=== PATIENT | male | born 1940 | race Caucasian/White ===

== ENCOUNTER 2016-09-08 12:02 | Inpatient (IN) | payer MEDICARE, BC ==
[~2016-09-08 12:02] MED LIST: ADULT LOW DOSE81 MG PO; ADVAIR 2501 DISK W/D; AIRET0.83 MG/ML IH; ALBUTEROL INH 0.3 ML AERO NEB; ALBUTEROL SULF8.5 GM IH; AMILORIDE HCL5 MG; AMILORIDE HCL5 MG PO; AMLODIPINE BESY10 MG PO; ASPIR 8181 MG; ASPIR-LOW81 M1 PO; AUGMENTIN875 MG PO; BABY ASPIRIN81 MG PO; BENAZEPRIL PO; BENICAR40 MG; CADUET 10 MG/201 TAB; CARDIZEM CD360 MG; CARTIA XT180 MG PO; CINNAMON PO; CINNAMON500 MG PO; CPAP; DEMADEX10 M1 PO; DUONEB 2.5-0.5 M3 ML IH; DUONEB 2.5-0.5MG3 M1 AERO NEB; FISH OIL 1,0001 CA1 PO; FLONASE16 GM NS; FLUCONAZOLE100 MG PO; GLIPIZIDE XL5 MG PO; GLIPIZIDE5 MG PO; GLUCOPHAGE XR500 M1 PO; GLUCOTROL XL10 M1 PO; GLUCOTROL XL2.5 MG PO; GLUCOTROL5 MG PO; LEVAQUIN750 MG PO; LEVOTHYROXINE150 MC3 PO; LEVOTHYROXINE150 MCG PO; LOPRESSOR25 MG/TA1 GT; LOPRESSOR25 MG/TA1 PO; LOPRESSOR50 MG PO; LOTENSIN40 MG PO; METFORMIN HCL500; METFORMIN HCL500 MG PO; MUCINEX1200 MG/BO PO; MULTIVITAMIN1 TAB PO; NASONEX17 GM NS; NEXIUM20 MG PO; NIASPAN1000 MG PO; NIASPAN500 MG PO; NIFEREX-150150 MG PO; NORCO 5/3251 TA1 PO; NORCO 5/3251 TAB PO; NORVASC5 M2 PO; OMEGA 31 CAP PO; OMEGA-31000 MG PO; OXYGEN; OXYGEN INH; OXYGEN NS; POTASSIUM CHLO20 MEQ PO; PREDNISONE10 MG PO; PRILOSEC OTC20 MG PO; PRINIVIL20 M1 PO; PROTONIX40 MG PO; ROBITUSSIN DM118 ML PO; SIMCOR PO; SIMVASTATIN40 MG PO; SPIRIVA18 MCG; SPIRIVA18 MCG IH; SYMBICORT 160-4.6 GM IH; SYMBICORT 16010.2 GM IH; SYNTHROID100 MCG; TAGAMET400 MG; TERAZOSIN HCL2 M PO; TERAZOSIN HCL5 MG PO; TERAZOSIN2 MG PO; TIAZAC180 MG PO; TORSEMIDE20 MG; TORSEMIDE20 MG PO; VITAMIN C PO; ZITHROMAX250 MG PO; ZOCOR10 M1 PO; amiloride PO
[2016-09-08] MEDS ORDERED: ANORO ELLIPTA1 EAC1 INH (12:21)
[2016-09-08] MEDS ORDERED: PAMELOR25 M1 PO (12:21)
[2016-09-08] MEDS ORDERED: POTASSIUM CHLO20 ME3 PO (12:31)
[2016-09-08] MEDS ORDERED: FISH OIL 11000 MG/CA PO (12:32)
[2016-09-08] MEDS ORDERED: VITAMIN C500 M3 PO (12:32)
[2016-09-08] MEDS ORDERED: MULTIVITAMINS1 EAC7 PO (12:32)
[2016-09-08] MEDS ORDERED: ALBUTEROL2.5 MG/3 M INH (12:33)
[2016-09-08] MEDS ORDERED: VITAMIN D31000 UNI4 PO (12:33)
[2016-09-08] MEDS ORDERED: FERROUS SULFAT325 MG PO (12:33)
[2016-09-08] MEDS ORDERED: CINNAMON500 M1 PO (12:43)
[2016-09-08] MEDS ORDERED: DEMADEX20 M1 PO (12:46)
[2016-09-08 12:48] LABS: BASO % 0.2 % (0-2); EOS % 1.3 % (0-7); EOSINOPHIL ABSOLUTE COUNT 0.1 tho/cmm (0.0-0.7); HCT-HEMATOCRIT 37.1 % (36.0-53.5); HGB-HEMOGLOBIN 11.3 gm/dl (13.5-17.0); LYMPH % 15.7 % (20-45); LYMPH ABSOLUTE COUNT 0.7 tho/cmm (0.8-4.5); MCHC MEAN CORPUSCULAR HGB CONC 30.5 % (32.0-36.0); MCV (MEAN CELL VOLUME) 88.5 fl (82.0-96.0); MEAN PLATELET VOLUME 10.2 cmc (9.4-12.4); MONO % 14.1 % (0-12); MONOCYTE ABSOLUTE COUNT 0.6 tho/cmm (0.0-1.2); NEUTROPHIL ABSOLUTE COUNT 3.1 tho/cmm (1.6-8.0); NEUTROPHIL-AUTOMATED 3.1 tho/cmm (1.6-8.0); NEUTROPHILS % 68.7 % (40-80); PLATELET COUNT 92 tho/cmm (150-450); RED BLOOD COUNT 4.19 mil/cmm (4.40-5.70); RED CELL DISTRIBUTION WIDTH 15.3 % (12.4-16.4); WHITE BLOOD COUNT 4.5 tho/cmm (4.0-10.0)
[2016-09-08 13:01] LABS: ALB/GLOB RATIO 1.2 (0.8-2.0); ALBUMIN 3.6 g/dl (3.5-5.0); ALKALINE PHOSPHATASE 81 U/L (33-138); ALT/SGPT 19 U/L (12-78); ANION GAP 11 mmol/L (0-20); AST/SGOT 23 U/L (10-40); BILIRUBIN,TOTAL 0.4 mg/dl (0.0-1.5); BLOOD UREA NITROGEN 48 mg/dl (6-24); CALCIUM 9.1 mg/dl (8.5-10.5); CARBON DIOXIDE-VENOUS 31 mmol/L (22-32); CHLORIDE 103 mmol/l (96-110); CREATININE 1.57 mg/dl (0.60-1.30); GLUCOSE 194 mg/dL (70-110); POTASSIUM 5.4 mmol/L (3.7-5.1); SODIUM 140 mmol/L (135-145); eGFR VALUE FOR BLACK 50 mL/Min
[2016-09-08 13:11] LABS: ABG CO2 ARTERIAL 34 mmol/L (21-27); ARTERIAL BLD GAS O2 SATURATION 94 % (95-98); ARTERIAL PO2 80 mmHg (70-100); BICARBONATE 32 mmol/L (21-28); BLOOD GAS BASE EXCESS 3 mM/L (-/+3); PH 7.25 Units (7.35-7.45)
[2016-09-08 13:14] LABS: ARTERIAL BLOOD GAS PCO2 74 mmHg (32-45)
[2016-09-08 16:36] LABS: ABG CO2 ARTERIAL 34 mmol/L (21-27); ARTERIAL BLD GAS O2 SATURATION 91 % (95-98); ARTERIAL BLOOD GAS PCO2 63 mmHg (32-45); ARTERIAL PO2 68 mmHg (70-100); BICARBONATE 32 mmol/L (21-28); BLOOD GAS BASE EXCESS 5 mM/L (-/+3); PH 7.33 Units (7.35-7.45)
[2016-09-08 16:37] LABS: URINE APPEARANCE CLEAR; URINE BILIRUBIN NEGATIVE (NEG); URINE BLOOD NEGATIVE (NEG); URINE COLOR YELLOW; URINE GLUCOSE (UA) NEGATIVE (NEG); URINE KETONE NEGATIVE (NEG); URINE LEUKOCYTE ESTERASE NEGATIVE (NEG); URINE NITRITE NEGATIVE (NEG); URINE PROTEIN SMALL (NEG); URINE SPECIFIC GRAVITY 1.015 (1.003-1.030)
[2016-09-08 16:48] LABS: URINE EPITHELIAL CELLS 0-1 /[HPF] (0-10); URINE RBC 0 /[HPF] (0-5); URINE WBC 0 /[HPF] (0-5)
[2016-09-08 18:07] LABS: ANION GAP 7 mmol/L (0-20); BLOOD UREA NITROGEN 47 mg/dl (6-24); CALCIUM 9.2 mg/dl (8.5-10.5); CARBON DIOXIDE-VENOUS 35 mmol/L (22-32); CHLORIDE 103 mmol/l (96-110); CREATININE 1.44 mg/dl (0.60-1.30); POTASSIUM 5.1 mmol/L (3.7-5.1); SODIUM 140 mmol/L (135-145); eGFR VALUE FOR BLACK 55 mL/Min
[2016-09-08 18:08] LABS: GLUCOSE 84 mg/dL (70-110)
[2016-09-08 18:43] LABS: PROCALCITONIN <0.05 ng/ml (0.05-0.09)
[2016-09-09 05:03] LABS: ABG CO2 ARTERIAL 35 mmol/L (21-27); ARTERIAL BLD GAS O2 SATURATION 94 % (95-98); ARTERIAL BLOOD GAS PCO2 58 mmHg (32-45); BICARBONATE 33 mmol/L (21-28); BLOOD GAS BASE EXCESS 7 mM/L (-/+3); PH 7.37 Units (7.35-7.45)
[2016-09-09 05:05] LABS: ARTERIAL PO2 83 mmHg (70-100)
[2016-09-09 05:23] LABS: BASO % 0.2 % (0-2); EOS % 1.5 % (0-7); EOSINOPHIL ABSOLUTE COUNT 0.1 tho/cmm (0.0-0.7); HCT-HEMATOCRIT 34.6 % (36.0-53.5); HGB-HEMOGLOBIN 10.5 gm/dl (13.5-17.0); LYMPH % 19.7 % (20-45); LYMPH ABSOLUTE COUNT 0.9 tho/cmm (0.8-4.5); MCH (MEAN CORPUSCULAR HGB) 26.5 pg (28.0-32.0); MCHC MEAN CORPUSCULAR HGB CONC 30.3 % (32.0-36.0); MCV (MEAN CELL VOLUME) 87.4 fl (82.0-96.0); MONO % 18.1 % (0-12); MONOCYTE ABSOLUTE COUNT 0.8 tho/cmm (0.0-1.2); NEUTROPHIL ABSOLUTE COUNT 2.8 tho/cmm (1.6-8.0); NEUTROPHIL-AUTOMATED 2.8 tho/cmm (1.6-8.0); NEUTROPHILS % 60.5 % (40-80); PLATELET COUNT 85 tho/cmm (150-450); RED BLOOD COUNT 3.96 mil/cmm (4.40-5.70); RED CELL DISTRIBUTION WIDTH 15.4 % (12.4-16.4); WHITE BLOOD COUNT 4.6 tho/cmm (4.0-10.0)
[2016-09-09 05:33] LABS: ANION GAP 8 mmol/L (0-20); BLOOD UREA NITROGEN 44 mg/dl (6-24); CALCIUM 8.9 mg/dl (8.5-10.5); CARBON DIOXIDE-VENOUS 35 mmol/L (22-32); CHLORIDE 102 mmol/l (96-110); CREATININE 1.51 mg/dl (0.60-1.30); MAGNESIUM 2.2 mg/dl (1.8-2.6); PHOSPHOROUS 3.9 mg/dl (2.5-4.9); POTASSIUM 5.2 mmol/L (3.7-5.1); SODIUM 140 mmol/L (135-145); eGFR VALUE FOR BLACK 52 mL/Min
[2016-09-09 05:50] LABS: GLUCOSE 51 mg/dL (70-110)
[2016-09-10 04:12] LABS: BASO % 0.2 % (0-2); EOS % 1.4 % (0-7); EOSINOPHIL ABSOLUTE COUNT 0.1 tho/cmm (0.0-0.7); HCT-HEMATOCRIT 35.3 % (36.0-53.5); HGB-HEMOGLOBIN 10.6 gm/dl (13.5-17.0); LYMPH ABSOLUTE COUNT 0.9 tho/cmm (0.8-4.5); MCH (MEAN CORPUSCULAR HGB) 26.4 pg (28.0-32.0); MEAN PLATELET VOLUME 9.6 cmc (9.4-12.4); MONO % 17.4 % (0-12); MONOCYTE ABSOLUTE COUNT 0.7 tho/cmm (0.0-1.2); NEUTROPHIL ABSOLUTE COUNT 2.5 tho/cmm (1.6-8.0); NEUTROPHIL-AUTOMATED 2.5 tho/cmm (1.6-8.0); PLATELET COUNT 80 tho/cmm (150-450); RED BLOOD COUNT 4.01 mil/cmm (4.40-5.70); RED CELL DISTRIBUTION WIDTH 15.5 % (12.4-16.4); WHITE BLOOD COUNT 4.2 tho/cmm (4.0-10.0)
[2016-09-10 04:21] LABS: ANION GAP 11 mmol/L (0-20); BLOOD UREA NITROGEN 40 mg/dl (6-24); CALCIUM 8.6 mg/dl (8.5-10.5); CARBON DIOXIDE-VENOUS 34 mmol/L (22-32); CHLORIDE 98 mmol/l (96-110); CREATININE 1.51 mg/dl (0.60-1.30); POTASSIUM 4.5 mmol/L (3.7-5.1); SODIUM 138 mmol/L (135-145); eGFR VALUE FOR BLACK 52 mL/Min
[2016-09-10 04:26] LABS: GLUCOSE 118 mg/dL (70-110)
[2016-09-10 14:30] LABS: INR 1.2 INR (0.9-1.1); PROTHROMBIN TIME 13.8 SECONDS (9.0-13.6)
[2016-09-11 04:30] LABS: EOS % 2.6 % (0-7); EOSINOPHIL ABSOLUTE COUNT 0.1 tho/cmm (0.0-0.7); HCT-HEMATOCRIT 35.1 % (36.0-53.5); HGB-HEMOGLOBIN 10.6 gm/dl (13.5-17.0); LYMPH % 20.5 % (20-45); LYMPH ABSOLUTE COUNT 0.7 tho/cmm (0.8-4.5); MCH (MEAN CORPUSCULAR HGB) 26.8 pg (28.0-32.0); MCHC MEAN CORPUSCULAR HGB CONC 30.2 % (32.0-36.0); MCV (MEAN CELL VOLUME) 88.9 fl (82.0-96.0); MONOCYTE ABSOLUTE COUNT 0.7 tho/cmm (0.0-1.2); NEUTROPHILS % 57.9 % (40-80); PLATELET COUNT 81 tho/cmm (150-450); RED BLOOD COUNT 3.95 mil/cmm (4.40-5.70); RED CELL DISTRIBUTION WIDTH 15.3 % (12.4-16.4); WHITE BLOOD COUNT 3.5 tho/cmm (4.0-10.0)
[2016-09-11 04:36] LABS: ANION GAP 8 mmol/L (0-20); BLOOD UREA NITROGEN 34 mg/dl (6-24); CALCIUM 8.3 mg/dl (8.5-10.5); CARBON DIOXIDE-VENOUS 36 mmol/L (22-32); CHLORIDE 101 mmol/l (96-110); CREATININE 1.27 mg/dl (0.60-1.30); GLUCOSE 138 mg/dL (70-110); MAGNESIUM 2.2 mg/dl (1.8-2.6); POTASSIUM 4.4 mmol/L (3.7-5.1); SODIUM 141 mmol/L (135-145); eGFR VALUE FOR BLACK 65 mL/Min
[2016-09-11 04:40] LABS: TSH-THYROID STIMULATING HORM. 3.78 uIU/ml (0.40-3.80)
[2016-09-12 05:26] LABS: ABG CO2 ARTERIAL 39 mmol/L (21-27); ARTERIAL BLD GAS O2 SATURATION 95 % (95-98); ARTERIAL PO2 84 mmHg (70-100); BICARBONATE 36 mmol/L (21-28); BLOOD GAS BASE EXCESS 8 mM/L (-/+3); PH 7.29 Units (7.35-7.45)
[2016-09-12 05:42] LABS: ARTERIAL BLOOD GAS PCO2 78 mmHg (32-45)
[2016-09-12 06:10] LABS: EOS % 3.2 % (0-7); EOSINOPHIL ABSOLUTE COUNT 0.1 tho/cmm (0.0-0.7); HCT-HEMATOCRIT 34.4 % (36.0-53.5); HGB-HEMOGLOBIN 10.3 gm/dl (13.5-17.0); LYMPH % 21.8 % (20-45); LYMPH ABSOLUTE COUNT 0.8 tho/cmm (0.8-4.5); MCH (MEAN CORPUSCULAR HGB) 26.6 pg (28.0-32.0); MCHC MEAN CORPUSCULAR HGB CONC 29.9 % (32.0-36.0); MCV (MEAN CELL VOLUME) 88.9 fl (82.0-96.0); MEAN PLATELET VOLUME 9.6 cmc (9.4-12.4); MONO % 18.8 % (0-12); MONOCYTE ABSOLUTE COUNT 0.7 tho/cmm (0.0-1.2); NEUTROPHIL ABSOLUTE COUNT 2.1 tho/cmm (1.6-8.0); NEUTROPHIL-AUTOMATED 2.1 tho/cmm (1.6-8.0); NEUTROPHILS % 56.2 % (40-80); PLATELET COUNT 81 tho/cmm (150-450); RED BLOOD COUNT 3.87 mil/cmm (4.40-5.70); RED CELL DISTRIBUTION WIDTH 15.1 % (12.4-16.4); WHITE BLOOD COUNT 3.7 tho/cmm (4.0-10.0)
[2016-09-12 06:38] LABS: ANION GAP 8 mmol/L (0-20); BLOOD UREA NITROGEN 34 mg/dl (6-24); CALCIUM 8.5 mg/dl (8.5-10.5); CARBON DIOXIDE-VENOUS 36 mmol/L (22-32); CHLORIDE 99 mmol/l (96-110); CREATININE 1.13 mg/dl (0.60-1.30); GLUCOSE 157 mg/dL (70-110); POTASSIUM 4.5 mmol/L (3.7-5.1); SODIUM 138 mmol/L (135-145); eGFR VALUE FOR BLACK 74 mL/Min
[2016-09-12 20:14] LABS: IRON 29 ug/dl (49-181); IRON BINDING CAPACITY 336 ug/dl (250-450)
[2016-09-13 04:56] LABS: ABG CO2 ARTERIAL 37 mmol/L (21-27); ARTERIAL BLD GAS O2 SATURATION 94 % (95-98); ARTERIAL BLOOD GAS PCO2 64 mmHg (32-45); BICARBONATE 35 mmol/L (21-28); BLOOD GAS BASE EXCESS 9 mM/L (-/+3); PH 7.36 Units (7.35-7.45)
[2016-09-13 04:57] LABS: ARTERIAL PO2 71 mmHg (70-100)
[2016-09-13 05:26] LABS: BASO % 0.3 % (0-2); EOS % 4.1 % (0-7); EOSINOPHIL ABSOLUTE COUNT 0.2 tho/cmm (0.0-0.7); HGB-HEMOGLOBIN 9.7 gm/dl (13.5-17.0); LYMPH % 20.3 % (20-45); LYMPH ABSOLUTE COUNT 0.7 tho/cmm (0.8-4.5); MCH (MEAN CORPUSCULAR HGB) 26.6 pg (28.0-32.0); MCHC MEAN CORPUSCULAR HGB CONC 30.3 % (32.0-36.0); MCV (MEAN CELL VOLUME) 87.7 fl (82.0-96.0); MEAN PLATELET VOLUME 10.1 cmc (9.4-12.4); MONO % 18.7 % (0-12); MONOCYTE ABSOLUTE COUNT 0.7 tho/cmm (0.0-1.2); NEUTROPHIL ABSOLUTE COUNT 2.1 tho/cmm (1.6-8.0); NEUTROPHIL-AUTOMATED 2.1 tho/cmm (1.6-8.0); NEUTROPHILS % 56.6 % (40-80); PLATELET COUNT 85 tho/cmm (150-450); RED BLOOD COUNT 3.65 mil/cmm (4.40-5.70); WHITE BLOOD COUNT 3.6 tho/cmm (4.0-10.0)
[2016-09-13 05:36] LABS: INR 1.1 INR (0.9-1.1); PROTHROMBIN TIME 13.2 SECONDS (9.0-13.6)
[2016-09-13 05:57] LABS: ALT/SGPT 14 U/L (12-78); ANION GAP 9 mmol/L (0-20); AST/SGOT 15 U/L (10-40); BLOOD UREA NITROGEN 38 mg/dl (6-24); CALCIUM 8.2 mg/dl (8.5-10.5); CARBON DIOXIDE-VENOUS 34 mmol/L (22-32); CHLORIDE 99 mmol/l (96-110); GLUCOSE 141 mg/dL (70-110); POTASSIUM 4.2 mmol/L (3.7-5.1); SODIUM 138 mmol/L (135-145); eGFR VALUE FOR BLACK 69 mL/Min
[2016-09-13 05:59] LABS: ALB/GLOB RATIO 1.1 (0.8-2.0); ALKALINE PHOSPHATASE 71 U/L (33-138); BILIRUBIN,TOTAL 0.4 mg/dl (0.0-1.5)
[2016-09-14 05:04] LABS: ANION GAP 7 mmol/L (0-20); BLOOD UREA NITROGEN 48 mg/dl (6-24); CALCIUM 8.3 mg/dl (8.5-10.5); CARBON DIOXIDE-VENOUS 35 mmol/L (22-32); CHLORIDE 100 mmol/l (96-110); CREATININE 1.41 mg/dl (0.60-1.30); GLUCOSE 142 mg/dL (70-110); POTASSIUM 4.4 mmol/L (3.7-5.1); SODIUM 138 mmol/L (135-145); eGFR VALUE FOR BLACK 57 mL/Min
[2016-09-14 10:33] LABS: BASO % 0.2 % (0-2); EOS % 3.6 % (0-7); EOSINOPHIL ABSOLUTE COUNT 0.2 tho/cmm (0.0-0.7); HCT-HEMATOCRIT 33.1 % (36.0-53.5); HGB-HEMOGLOBIN 9.9 gm/dl (13.5-17.0); LYMPH % 18.2 % (20-45); LYMPH ABSOLUTE COUNT 0.8 tho/cmm (0.8-4.5); MCH (MEAN CORPUSCULAR HGB) 26.3 pg (28.0-32.0); MCHC MEAN CORPUSCULAR HGB CONC 29.9 % (32.0-36.0); MEAN PLATELET VOLUME 9.7 cmc (9.4-12.4); MONO % 13.2 % (0-12); MONOCYTE ABSOLUTE COUNT 0.6 tho/cmm (0.0-1.2); NEUTROPHIL ABSOLUTE COUNT 2.7 tho/cmm (1.6-8.0); NEUTROPHIL-AUTOMATED 2.7 tho/cmm (1.6-8.0); NEUTROPHILS % 64.8 % (40-80); PLATELET COUNT 81 tho/cmm (150-450); RED BLOOD COUNT 3.76 mil/cmm (4.40-5.70); RED CELL DISTRIBUTION WIDTH 14.9 % (12.4-16.4); WHITE BLOOD COUNT 4.2 tho/cmm (4.0-10.0)
[2016-09-15 05:03] LABS: BASO % 0.3 % (0-2); EOS % 5.2 % (0-7); EOSINOPHIL ABSOLUTE COUNT 0.2 tho/cmm (0.0-0.7); HCT-HEMATOCRIT 32.2 % (36.0-53.5); HGB-HEMOGLOBIN 9.6 gm/dl (13.5-17.0); INR 1.2 INR (0.9-1.1); LYMPH % 21.2 % (20-45); LYMPH ABSOLUTE COUNT 0.6 tho/cmm (0.8-4.5); MCH (MEAN CORPUSCULAR HGB) 26.4 pg (28.0-32.0); MCHC MEAN CORPUSCULAR HGB CONC 29.8 % (32.0-36.0); MCV (MEAN CELL VOLUME) 88.5 fl (82.0-96.0); MEAN PLATELET VOLUME 10.4 cmc (9.4-12.4); MONO % 15.6 % (0-12); MONOCYTE ABSOLUTE COUNT 0.5 tho/cmm (0.0-1.2); NEUTROPHIL ABSOLUTE COUNT 1.7 tho/cmm (1.6-8.0); NEUTROPHIL-AUTOMATED 1.7 tho/cmm (1.6-8.0); NEUTROPHILS % 57.7 % (40-80); PLATELET COUNT 82 tho/cmm (150-450); PROTHROMBIN TIME 13.5 SECONDS (9.0-13.6); RED BLOOD COUNT 3.64 mil/cmm (4.40-5.70); RED CELL DISTRIBUTION WIDTH 14.9 % (12.4-16.4); WHITE BLOOD COUNT 2.9 tho/cmm (4.0-10.0)
[2016-09-15 05:12] LABS: ALKALINE PHOSPHATASE 68 U/L (33-138); ALT/SGPT 16 U/L (12-78); ANION GAP 7 mmol/L (0-20); AST/SGOT 18 U/L (10-40); BILIRUBIN,TOTAL 0.4 mg/dl (0.0-1.5); BLOOD UREA NITROGEN 52 mg/dl (6-24); CALCIUM 8.4 mg/dl (8.5-10.5); CARBON DIOXIDE-VENOUS 35 mmol/L (22-32); CHLORIDE 99 mmol/l (96-110); CREATININE 1.36 mg/dl (0.60-1.30); GLUCOSE 148 mg/dL (70-110); POTASSIUM 4.2 mmol/L (3.7-5.1); SODIUM 137 mmol/L (135-145); eGFR VALUE FOR BLACK 59 mL/Min
[2016-09-16 05:52] LABS: BASO % 0.4 % (0-2); EOS % 4.3 % (0-7); EOSINOPHIL ABSOLUTE COUNT 0.1 tho/cmm (0.0-0.7); HCT-HEMATOCRIT 32.6 % (36.0-53.5); HGB-HEMOGLOBIN 9.8 gm/dl (13.5-17.0); LYMPH % 21.5 % (20-45); LYMPH ABSOLUTE COUNT 0.6 tho/cmm (0.8-4.5); MCH (MEAN CORPUSCULAR HGB) 26.3 pg (28.0-32.0); MCHC MEAN CORPUSCULAR HGB CONC 30.1 % (32.0-36.0); MCV (MEAN CELL VOLUME) 87.6 fl (82.0-96.0); MONO % 16.5 % (0-12); MONOCYTE ABSOLUTE COUNT 0.5 tho/cmm (0.0-1.2); NEUTROPHIL ABSOLUTE COUNT 1.6 tho/cmm (1.6-8.0); NEUTROPHIL-AUTOMATED 1.6 tho/cmm (1.6-8.0); NEUTROPHILS % 57.3 % (40-80); PLATELET COUNT 81 tho/cmm (150-450); RED BLOOD COUNT 3.72 mil/cmm (4.40-5.70); RED CELL DISTRIBUTION WIDTH 14.8 % (12.4-16.4); WHITE BLOOD COUNT 2.8 tho/cmm (4.0-10.0)
[2016-09-16 06:08] LABS: ALKALINE PHOSPHATASE 71 U/L (33-138); ALT/SGPT 15 U/L (12-78); ANION GAP 8 mmol/L (0-20); AST/SGOT 17 U/L (10-40); BILIRUBIN,TOTAL 0.5 mg/dl (0.0-1.5); BLOOD UREA NITROGEN 51 mg/dl (6-24); CALCIUM 8.3 mg/dl (8.5-10.5); CARBON DIOXIDE-VENOUS 35 mmol/L (22-32); CHLORIDE 98 mmol/l (96-110); CREATININE 1.31 mg/dl (0.60-1.30); GLUCOSE 148 mg/dL (70-110); POTASSIUM 4.4 mmol/L (3.7-5.1); SODIUM 137 mmol/L (135-145); eGFR VALUE FOR BLACK 62 mL/Min
[2016-09-16] MEDS ORDERED: IPRATROPIU0.2 MG/1 M INH (13:23)
[2016-09-16] MEDS ORDERED: NITROSTAT0.4 M1 SL (13:25)
[2016-09-16] MEDS ORDERED: DEMADEX20 M1 PO (13:27)
[2016-09-16] MEDS ORDERED: MUCINEX600 M1 PO (13:27)
[2016-09-16] MEDS ORDERED: VIGAMOX3 M1 OP (13:28)
[2017-02-25] MEDS ORDERED: B-12 (13:26)
[2017-02-25] MEDS ORDERED: TOPROL XL25 M1 PO (13:27)
[2017-02-25] MEDS ORDERED: ALDACTONE25 M1 PO (13:29)
[2017-02-25] MEDS ORDERED: XARELTO15 M1 PO (13:31)
== END 2016-09-16 14:25 | DRG 291 ==
LOC: EDMED 12:02 → EMR2 14:17 → PCUB 16:10
PROVIDERS: Emergency Medicine; Family Medicine; Internal Medicine; Internal Medicine Cardiovascular Disease; Internal Medicine Pulmonary Disease; Nurse Practitioner Adult Health; ADMIT Internal Medicine
PROC: 5A09357 Assistance with Respiratory Ventilation, Less than 24 Consecutive Hours, Continuous Positive Airway Pressure (ICD-10-PCS; principal; 2016-09-08)
DX: I13.0 Hypertensive heart and chronic kidney disease with heart failure and stage 1 through stage 4 chronic kidney disease, or unspecified chronic kidney disease (principal); J96.22 Acute and chronic respiratory failure with hypercapnia; J96.01 Acute respiratory failure with hypoxia; N17.9 Acute kidney failure, unspecified; D61.818 Other pancytopenia; E11.22 Type 2 diabetes mellitus with diabetic chronic kidney disease; I45.3 Trifascicular block; D69.6 Thrombocytopenia, unspecified; N18.3 Chronic kidney disease, stage 3 (moderate); I27.2 Other secondary pulmonary hypertension; J44.1 Chronic obstructive pulmonary disease with (acute) exacerbation; Z68.42 Body mass index [BMI] 45.0-49.9, adult; I48.92 Unspecified atrial flutter; I50.32 Chronic diastolic (congestive) heart failure; E78.5 Hyperlipidemia, unspecified; I73.9 Peripheral vascular disease, unspecified; G47.33 Obstructive sleep apnea (adult) (pediatric); E87.5 Hyperkalemia; E66.01 Morbid (severe) obesity due to excess calories; I25.10 Atherosclerotic heart disease of native coronary artery without angina pectoris; K21.9 Gastro-esophageal reflux disease without esophagitis; E03.9 Hypothyroidism, unspecified; Z79.82 Long term (current) use of aspirin; Z88.8 Allergy status to other drugs, medicaments and biological substances; Z87.891 Personal history of nicotine dependence; J98.6 Disorders of diaphragm; I87.2 Venous insufficiency (chronic) (peripheral); Z99.81 Dependence on supplemental oxygen; G47.10 Hypersomnia, unspecified; R31.0 Gross hematuria; D64.9 Anemia, unspecified; M19.90 Unspecified osteoarthritis, unspecified site; N40.1 Benign prostatic hyperplasia with lower urinary tract symptoms; R39.15 Urgency of urination; R35.1 Nocturia; I27.81 Cor pulmonale (chronic); I48.0 Paroxysmal atrial fibrillation
CPT/HCPCS: J1756; J1815; J1940; J2543; J3370; J3420; J7050